=== PATIENT | male | born 2000 | race Caucasian/White ===

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

== ENCOUNTER 2020-12-17 19:18 | Observation (INO) | payer BC ==
[2020-12-17] MEDS ORDERED: Sodium Chloride 0.9% 10 ML Syringe FLUSH PRN (19:31)
[2020-12-17] MEDS ORDERED: Ketorolac 15 MG/ML SDV IVPUSH ONE (19:31)
[2020-12-17] MEDS ORDERED: Ondansetron 4 MG/2 ML SDV IVPUSH ONE (19:31)
[2020-12-17] MEDS ORDERED: Sodium Chloride 0.9% 2.5 ML Syringe FLUSH PRN (19:31)
[2020-12-17] MEDS ORDERED: Sodium Chloride 0.9% 1,000 ML IV ONE (19:33)
--- NOTE | 2020-12-17 19:36 | EDM.PDOC ---
ED HPI GENERAL MEDICAL PROBLEM - General Chief Complaint: Abdominal Pain Stated Complaint: PROBLEMS WITH GALLBLADDER Time Seen by Provider: 12/17/20 19:31 - History of Present Illness INITIAL COMMENTS - FREE TEXT/NARRATIVE: History and physical History of present illness: [] The patient had a sudden onset of right hypogastric pain at about 6 PM. It was sharp like somebody stabbing him with a knife. He is vomited. He does not have fever or chills. He was not ill before it. He was not injured. He was not weight lifting. He has no hernia. There is no radiation to the back or the testicles. The patient does have pain when he urinates. The patient's never had this before and he is in excellent health. Review of systems: As per history of present illness and below otherwise all systems reviewed and negative. Past medical history: As per history of present illness and as reviewed below otherwise noncontributory. Surgical history: As per history of present illness and as reviewed below otherwise noncontribut ory. Social history: No reported history of drug or alcohol abuse. Family history: As per history of present illness and as reviewed below otherwise noncontributory. Physical exam: Constitutional - well developed, well-nourished and in no acute distress HEENT - normocephalic, no evidence of trauma - external nose and mouth normal - no mass in neck and no JVD - mucosae moist EYES - full EOM, PERRL, no icterus - no evidence of inflammation, injection, or drainage Respiratory - no respiratory distress, equal bilateral expansion, lungs clear to auscultation and no abnormal lung sounds Cardiovascular - Regular Rhythm with S1 and S2 appreciated and no murmur, gallop or rub. GI - abdomen soft without distension or organomegaly -very tender in the right hypogastrium above McBurney's point or superior to McBurney's point. He guards this area. Normal bowel sounds - no rebound External genitalia are normal with no tenderness or mass Musculoskeletal no gross deformity of long bones or joints - no tenderness, swelling or edema Neurologic - Alert and oriented times four - CN II-XII grossly intact - motor sensory and coordination symmetrically normal Psychiatric - appropriate mood and affect with normal thought content Hematologic - No petechiae or purpura - mucosa appropriate color and sclera not pale - normal nail bed color and refill Integument - no rash or evidence of trauma - normal turgor Diagnostics: [] Therapeutics: [] Impression: [] Plan: [] Definitive disposition and diagnosis as appropriate pending reevaluation and review of above. RLQ Pain Score (Numeric/FACES): 10 - Related Data Allergies Allergy/AdvReac Type Severity Reaction Status Date / Time No Known Allergies Allergy Verified 07/22/19 13:08 Home Meds: Home Meds . [No Known Home Meds] 12/17/20 [History] Past Medical History HEENT History: Reports: Allergic Rhinitis Cardiovascular History: Reports: None Respiratory History: Reports: Asthma Other Respiratory History: has not used an inhaler for 5 years Gastrointestinal History: Reports: None Genitourinary History: Reports: None Musculoskeletal History: Reports: None Neurological History: Reports: None Psychiatric History: Reports: ADD, ADHD Endocrine/Metabolic History: Reports: Obesity/BMI 30+ Hematologic History: Reports: None Immunologic History: Reports: None Oncologic (Cancer) History: Reports: None Dermatologic History: Reports: None - Infectious Disease History Infectious Disease History: Reports: None - Past Surgical History Head Surgeries/Procedures: Reports: None HEENT Surgical History: Reports: Oral Surgery Other HEENT Surgeries/Procedures: dental surgery as a child Social & Family History - Family History Family Medical History: No Pertinent Family History - Caffeine Use Caffeine Use: Reports: Coffee, Soda ED ROS GENERAL - Review of Systems Review Of Systems: Comprehensive ROS is negative, except as noted in HPI. ED EXAM, GENERAL - Physical Exam Exam: See Below Free Text/Narrative:: My physical exam is in the HPI Course - Vital Signs Text/Narrative:: 2214 hrs. the patient's pain is improved somewhat. CT reveals nothing other than appendicitis without perforation but with a fecalith. Discussed with surgery on-call Dr. Mccray. [id number] Dr. Mccray is here. He will take care of the patient. Will place patient in knobs status and if the patient needs to be rolled into an admission he will take care of it. Last Recorded V/S: Last Vital Signs Temp 37.4 C 12/17/20 19:30 Pulse 94 12/17/20 22:24 Resp 14 12/17/20 22:24 BP 126/66 12/17/20 22:24 Pulse Ox 97 12/17/20 22:24 - Orders/Labs/Meds Orders: Active Orders 24 hr Category Date Time Status Admission Status [Patient Status] [ADT] Routine ADT 12/17/20 22:41 Ordered Notify Provider Consults [RC] ASDIRECTED Care 12/17/20 22:21 Active Consult to Physician [CONS] Stat Cons 12/17/20 22:20 Active CORONAVIRUS COVID-19 EMMETT [MOLEC] Stat Lab 12/17/20 22:20 Received Meropenem [Merrem] 1 gm Med 12/17/20 22:19 Active Sodium Chloride 0.9% [Normal Saline] 100 ml IV ONETIME Sodium Chloride 0.9% [Saline Flush] Med 12/17/20 19:31 Active 10 ml FLUSH ASDIRECTED PRN Sodium Chloride 0.9% [Saline Flush] Med 12/17/20 19:31 Active 2.5 ml FLUSH ASDIRECTED PRN Saline Lock Insert [OM.PC] Stat Oth 12/17/20 19:31 Ordered Medication Orders Meropenem 1 gm/ Sodium (Chloride) 100 mls @ 200 mls/hr IV ONETIME ONE Stop: 12/17/20 22:48 Sodium Chloride (Sodium Chloride 0.9% 10 Ml Syringe) 10 ml FLUSH ASDIRECTED PRN PRN Reason: Keep Vein Open Sodium Chloride (Sodium Chloride 0.9% 2.5 Ml Syringe) 2.5 ml FLUSH ASDIRECTED PRN PRN Reason: Keep Vein Open Labs: Laboratory Tests 12/17/20 12/17/20 12/17/20 Range/Units 19:27 19:50 19:50 WBC 19.63 H (4.0-11.0) K/uL RBC 5.45 (4.50-5.90) M/uL Hgb 16.7 (13.0-17.0) g/dL Hct 46.9 (38.0-50.0) % MCV 86.1 (80.0-98.0) fL MCH 30.6 (27.0-32.0) pg MCHC 35.6 (31.0-37.0) g/dL RDW Std Deviation 42.0 (28.0-62.0) fl RDW Coeff of Victorino 13 (11.0-15.0) % Plt Count 247 (150-400) K/uL MPV 10.00 (7.40-12.00) fL Neut % (Auto) 84.9 H (48.0-80.0) % Lymph % (Auto) 7.4 L (16.0-40.0) % [place] % (Auto) 6.9 (0.0-15.0) % Eos % (Auto) 0.7 (0.0-7.0) % Baso % (Auto) 0.1 (0.0-1.5) % Neut # (Auto) 16.7 H (1.4-5.7) K/uL Lymph # (Auto) 1.5 (0.6-2.4) K/uL [place] # (Auto) 1.4 H (0.0-0.8) K/uL Eos # (Auto) 0.1 (0.0-0.7) K/uL Baso # (Auto) 0.0 (0.0-0.1) K/uL Nucleated RBC % 0.0 /100WBC Nucleated RBCs # 0 K/uL Sodium 139 (136-148) mmol/L Potassium 3.8 (3.5-5.1) mmol/L Chloride 104 (98-107) mmol/L Carbon Dioxide 26.6 (21.0-32.0) mmol/L BUN 11 (7.0-18.0) mg/dL Creatinine 1.2 (0.8-1.3) mg/dL Est Cr Clr Drug Dosing 107.78 mL/min Estimated GFR (MDRD) > 60.0 ml/min Glucose 127 H (74-106) mg/dL Calcium 9.4 (8.5-10.1) mg/dL Total Bilirubin 0.4 (0.2-1.0) mg/dL AST 15 (15-37) IU/L ALT 39 (14-63) IU/L Alkaline Phosphatase 95 (46-116) U/L Total Protein 7.5 (6.4-8.2) g/dL Albumin 3.8 (3.4-5.0) g/dL Globulin 3.7 (2.6-4.0) g/dL Albumin/Globulin Ratio 1.0 (0.9-1.6) Lipase 63 L (73-393) U/L Urine Color YELLOW Urine Appearance CLEAR Urine pH 6.0 (5.0-8.0) Ur Specific [place] 1.025 (1.001-1.035) Urine Protein NEGATIVE (NEGATIVE) mg/dL Urine Glucose (UA) NEGATIVE (NEGATIVE) mg/dL Urine Ketones NEGATIVE (NEGATIVE) mg/dL Urine Occult Blood NEGATIVE (NEGATIVE) Urine Nitrite NEGATIVE (NEGATIVE) Urine Bilirubin NEGATIVE (NEGATIVE) Urine Urobilinogen 0.2 (<2.0) EU/dL Ur Leukocyte Esterase NEGATIVE (NEGATIVE) Meds: Medications Generic Name Dose Route Start Last Admin Trade Name Freq PRN Reason Stop Dose Admin Meropenem 1 gm/ Sodium 100 mls @ 200 mls/hr 12/17/20 22:19 Chloride IV 12/17/20 22:48 ONETIME ONE Sodium Chloride 10 ml 12/17/20 19:31 Sodium Chloride 0.9% 10 Ml Syringe FLUSH ASDIRECTED PRN Keep Vein Open Sodium Chloride 2.5 ml 12/17/20 19:31 Sodium Chloride 0.9% 2.5 Ml Syringe FLUSH ASDIRECTED PRN Keep Vein Open Discontinued Medications Generic Name Dose Route Start Last Admin Trade Name Freq PRN Reason Stop Dose Admin Fentanyl 50 mcg 12/17/20 20:38 Fentanyl 50 Mcg/Ml Sdv IVPUSH 12/17/20 20:39 ONETIME ONE Sodium Chloride 1,000 mls @ 1,000 mls/hr 12/17/20 19:33 12/17/20 20:07 Normal Saline IV 12/17/20 20:32 1,000 mls/hr .Bolus ONE Administration Meropenem/Sodium Chloride Confirm 12/17/20 22:27 Meropenem In Ns 1 Gm/50 Ml Administered 12/17/20 22:28 Dose 50 mls @ as directed IV .STK-MED ONE Iopamidol 100 ml 12/17/20 21:05 12/17/20 21:06 Iopamidol 755 Mg/Ml 500 Ml Multipack Bottle IVPUSH 12/17/20 21:06 100 ml ONETIME STA Administration Ketorolac Tromethamine 15 mg 12/17/20 19:31 12/17/20 20:09 Ketorolac 15 Mg/Ml Sdv IVPUSH 12/17/20 19:32 15 mg ONETIME ONE Administration Ondansetron HCl 4 mg 12/17/20 19:31 12/17/20 20:11 Ondansetron 4 Mg/2 Ml Sdv IVPUSH 12/17/20 19:32 4 mg ONETIME ONE Administration Departure - Departure Time of Disposition: 22:43 Disposition: Refer to Observation Condition: Good Clinical Impression: Acute appendicitis - Discharge Information Sepsis Event Note (ED) - Evaluation Sepsis Screening Result: No Definite Risk - Focused Exam Vital Signs: Vital Signs Temp Pulse Resp BP Pulse Ox 12/17/20 22:24 94 14 126/66 97 12/17/20 19:30 37.4 C 91 20 161/77 H 98 - My Orders Last 24 Hours: My Active Orders 12/17/20 19:31 Sodium Chloride 0.9% [Saline Flush] 10 ml FLUSH ASDIRECTED PRN Sodium Chloride 0.9% [Saline Flush] 2.5 ml FLUSH ASDIRECTED PRN Saline Lock Insert [OM.PC] Stat 12/17/20 22:19 Meropenem [Merrem] 1 gm Sodium Chloride 0.9% [Normal Saline] 100 ml IV ONETIME 12/17/20 22:20 Consult to Physician [CONS] Stat CORONAVIRUS COVID-19 EMMETT [MOLEC] Stat 12/17/20 22:21 Notify Provider Consults [RC] ASDIRECTED 12/17/20 22:41 Admission Status [Patient Status] [ADT] Routine - Assessment/Plan Last 24 Hours: My Active Orders 12/17/20 19:31 Sodium Chloride 0.9% [Saline Flush] 10 ml FLUSH ASDIRECTED PRN Sodium Chloride 0.9% [Saline Flush] 2.5 ml FLUSH ASDIRECTED PRN Saline Lock Insert [OM.PC] Stat 12/17/20 22:19 Meropenem [Merrem] 1 gm Sodium Chloride 0.9% [Normal Saline] 100 ml IV ONETIME 12/17/20 22:20 Consult to Physician [CONS] Stat CORONAVIRUS COVID-19 EMMETT [MOLEC] Stat 12/17/20 22:21 Notify Provider Consults [RC] ASDIRECTED 12/17/20 22:41 Admission Status [Patient Status] [ADT] Routine
[2020-12-17 20:16] LABS: BLOOD UREA NITROGEN,BUN 11 mg/dL (7.0-18.0); CARBON DIOXIDE,CO2 26.6 mmol/L (21.0-32.0); CHLORIDE,CL 104 mmol/L (98-107); GLUCOSE RANDOM 127 mg/dL (74-106); LIPASE 63 U/L (73-393); POTASSIUM,K 3.8 mmol/L (3.5-5.1); SODIUM,NA 139 mmol/L (136-148)
[2020-12-17] MEDS ORDERED: fentaNYL 50 MCG/ML SDV IVPUSH ONE (20:38)
[2020-12-17] MEDS ORDERED: Iopamidol 755 MG/ML 500 ML Multipack Bottle IVPUSH STA (21:05)
--- NOTE | 2020-12-17 21:34 | CT ---
For Patients: As a result of the Century Cures Act, medical imaging exams and procedure reports are released immediately into your electronic medical record. You may view this report before your referring provider. If you have questions, please contact your health care provider. INDICATION: Right hypogastric abdomen pain and leukocytosis. TECHNIQUE: CT abdomen and pelvis acquired with 100 cc Isovue 370 IV contrast. COMPARISON: None. FINDINGS: Lower chest: Unremarkable. Liver: Unremarkable. Normal in size and attenuation. No suspicious masses. Gallbladder and bile ducts: Unremarkable. No stones or inflammation. No biliary dilatation. Pancreas: Unremarkable. No mass or inflammation. Spleen: Unremarkable. Normal in size. No masses. Adrenal glands: Unremarkable. No nodules. Kidneys: Unremarkable. No suspicious masses, stones, or hydronephrosis. GI tract: Unremarkable. Normal in caliber. No sign of mass or inflammation. Appendix is inflamed and dilated up to 9 mm. A fecalith is present at the origin of the appendix. No perforation or abscess. Vasculature: Unremarkable. Mesenteric arteries are patent. Lymph nodes: No lymphadenopathy. Omentum/Peritoneum/Abdominal Wall: Unremarkable. No sign of mass or infiltration. No free air or significant free fluid. Pelvis: Unremarkable. Bones: Unremarkable for age. IMPRESSION: Acute uncomplicated appendicitis. Please note that all CT scans at this facility use dose modulation, iterative reconstruction, and/or weight-based dosing when appropriate to reduce radiation dose to as low as reasonably achievable. Dictated by Eduardo Ambriz MD @ 12/17/2020 9:33:[address] Eduardo Ambriz @ Dec 17 2020 9:33PM
[2020-12-17] MEDS ORDERED: Meropenem 1 GM in Sodium Chloride 0.9% 100 ML IV ONE (22:19)
[2020-12-17] MEDS ORDERED: Meropenem Premix 50 ML IV ONE (22:27)
--- NOTE | 2020-12-17 23:21 | PCM.PREANE ---
Preanesthetic Assessment - Procedure Proposed Procedure: LAP APPY - Anesthesia/Transfusion/Family Hx Anesthesia History: Prior Anesthesia Without Reaction Family History of Anesthesia Reaction: No Transfusion History: No Prior Transfusion(s) Intubation History: Unknown - Review of Systems General: No Symptoms Pulmonary: Other (Asthma. Uses nebulizers every 4-6 weeks, last ~ 4 weeks ago. SMOKES and CHEWS.) Gastrointestinal: Abdominal Pain Neurological: No Symptoms Other: Reports: None - Physical Assessment NPO Status Date: 12/17/20 NPO Status Time: 16:00 Vital Signs: Last Vital Signs Temp 37.4 C 12/17/20 19:30 Pulse 72 12/17/20 22:53 Resp 16 12/17/20 22:53 BP 126/44 L 12/17/20 22:53 Pulse Ox 96 12/17/20 22:53 Height: 1.83 m Weight: 104.326 kg ASA Class: 2E Airway Class: Mallampati = 2 Dentition: Reports: Normal Dentition Thyro-Mental Finger Breadths: 3 Mouth Opening Finger Breadths: 3 ROM/Head Extension: Full Lungs: Clear to Auscultation Cardiovascular: Regular Rate - Lab Values: Laboratory Last Values WBC 19.63 K/uL (4.0-11.0) H 12/17/20 19:50 RBC 5.45 M/uL (4.50-5.90) 12/17/20 19:50 Hgb 16.7 g/dL (13.0-17.0) 12/17/20 19:50 Hct 46.9 % (38.0-50.0) 12/17/20 19:50 MCV 86.1 fL (80.0-98.0) 12/17/20 19:50 MCH 30.6 pg (27.0-32.0) 12/17/20 19:50 MCHC 35.6 g/dL (31.0-37.0) 12/17/20 19:50 RDW Std Deviation 42.0 fl (28.0-62.0) 12/17/20 19:50 RDW Coeff of Victorino 13 % (11.0-15.0) 12/17/20 19:50 Plt Count 247 K/uL (150-400) 12/17/20 19:50 MPV 10.00 fL (7.40-12.00) 12/17/20 19:50 Neut % (Auto) 84.9 % (48.0-80.0) H 12/17/20 19:50 Lymph % (Auto) 7.4 % (16.0-40.0) L 12/17/20 19:50 [place] % (Auto) 6.9 % (0.0-15.0) 12/17/20 19:50 Eos % (Auto) 0.7 % (0.0-7.0) 12/17/20 19:50 Baso % (Auto) 0.1 % (0.0-1.5) 12/17/20 19:50 Neut # (Auto) 16.7 K/uL (1.4-5.7) H 12/17/20 19:50 Lymph # (Auto) 1.5 K/uL (0.6-2.4) 12/17/20 19:50 [place] # (Auto) 1.4 K/uL (0.0-0.8) H 12/17/20 19:50 Eos # (Auto) 0.1 K/uL (0.0-0.7) 12/17/20 19:50 Baso # (Auto) 0.0 K/uL (0.0-0.1) 12/17/20 19:50 Nucleated RBC % 0.0 /100WBC 12/17/20 19:50 Nucleated RBCs # 0 K/uL 12/17/20 19:50 Sodium 139 mmol/L (136-148) 12/17/20 19:50 Potassium 3.8 mmol/L (3.5-5.1) 12/17/20 19:50 Chloride 104 mmol/L (98-107) 12/17/20 19:50 Carbon Dioxide 26.6 mmol/L (21.0-32.0) 12/17/20 19:50 BUN 11 mg/dL (7.0-18.0) 12/17/20 19:50 Creatinine 1.2 mg/dL (0.8-1.3) 12/17/20 19:50 Est Cr Clr Drug Dosing 107.78 mL/min 12/17/20 19:50 Estimated GFR (MDRD) > 60.0 ml/min 12/17/20 19:50 Glucose 127 mg/dL (74-106) H 12/17/20 19:50 Calcium 9.4 mg/dL (8.5-10.1) 12/17/20 19:50 Total Bilirubin 0.4 mg/dL (0.2-1.0) 12/17/20 19:50 AST 15 IU/L (15-37) 12/17/20 19:50 ALT 39 IU/L (14-63) 12/17/20 19:50 Alkaline Phosphatase 95 U/L (46-116) 12/17/20 19:50 Total Protein 7.5 g/dL (6.4-8.2) 12/17/20 19:50 Albumin 3.8 g/dL (3.4-5.0) 12/17/20 19:50 Globulin 3.7 g/dL (2.6-4.0) 12/17/20 19:50 Albumin/Globulin Ratio 1.0 (0.9-1.6) 12/17/20 19:50 Lipase 63 U/L (73-393) L 12/17/20 19:50 Urine Color YELLOW 12/17/20 19:27 Urine Appearance CLEAR 12/17/20 19:27 Urine pH 6.0 (5.0-8.0) 12/17/20 19:27 Ur Specific [place] 1.025 (1.001-1.035) 12/17/20 19:27 Urine Protein NEGATIVE mg/dL (NEGATIVE) 12/17/20 19:27 Urine Glucose (UA) NEGATIVE mg/dL (NEGATIVE) 12/17/20 19:27 Urine Ketones NEGATIVE mg/dL (NEGATIVE) 12/17/20 19:27 Urine Occult Blood NEGATIVE (NEGATIVE) 12/17/20 19:27 Urine Nitrite NEGATIVE (NEGATIVE) 12/17/20 19:27 Urine Bilirubin NEGATIVE (NEGATIVE) 12/17/20 19:27 Urine Urobilinogen 0.2 EU/dL (<2.0) 12/17/20 19:27 Ur Leukocyte Esterase NEGATIVE (NEGATIVE) 12/17/20 19:27 SARS-CoV-2 RNA (EMMETT) NEGATIVE (NEGATIVE) 12/17/20 22:20 - Allergies Allergies/Adverse Reactions: Allergies Allergy/AdvReac Type Severity Reaction Status Date / Time No Known Allergies Allergy Verified 07/22/19 13:08 - Blood Blood Available: No Product(s) Available: None - Anesthesia Plan Pre-Op Medication Ordered: None - Acknowledgements Anesthesia Type Planned: General Anesthesia Pt an Appropriate Candidate for the Planned Anesthesia: Yes Alternatives and Risks of Anesthesia Discussed w Pt/Guardian: Yes Pt/Guardian Understands and Agrees with Anesthesia Plan: Yes Additional Comments: Discussed, ? answered, permit signed, will proceed. PreAnesthesia Questionnaire HEENT History: Reports: Allergic Rhinitis Cardiovascular History: Reports: None Respiratory History: Reports: Asthma Other Respiratory History: has not used an inhaler for 5 years Gastrointestinal History: Reports: None Genitourinary History: Reports: None Musculoskeletal History: Reports: None Neurological History: Reports: None Psychiatric History: Reports: ADD, ADHD Endocrine/Metabolic History: Reports: Obesity/BMI 30+ Hematologic History: Reports: None Immunologic History: Reports: None Oncologic (Cancer) History: Reports: None Dermatologic History: Reports: None - Infectious Disease History Infectious Disease History: Reports: None - Past Surgical History Head Surgeries/Procedures: Reports: None HEENT Surgical History: Reports: Oral Surgery Other HEENT Surgeries/Procedures: dental surgery as a child - SUBSTANCE USE Tobacco Use Within Last Twelve Months: Cigarettes Recreational Drug Use History: No - HOME MEDS Home Medications: Home Meds . [No Known Home Meds] 12/17/20 [History] - CURRENT (IN HOUSE) MEDS Current Meds: Current Medications Sodium Chloride (Sodium Chloride 0.9% 10 Ml Syringe) 10 ml FLUSH ASDIRECTED PRN PRN Reason: Keep Vein Open Sodium Chloride (Sodium Chloride 0.9% 2.5 Ml Syringe) 2.5 ml FLUSH ASDIRECTED PRN PRN Reason: Keep Vein Open Discontinued Medications Fentanyl (Fentanyl 50 Mcg/Ml Sdv) 50 mcg IVPUSH ONETIME ONE Stop: 12/17/20 20:39 Last Admin: 12/17/20 22:47 Dose: 50 mcg Documented by: Sodium Chloride (Normal Saline) 1,000 mls @ 1,000 mls/hr IV .Bolus ONE Stop: 12/17/20 20:32 Last Admin: 12/17/20 20:07 Dose: 1,000 mls/hr Documented by: Meropenem 1 gm/ Sodium (Chloride) 100 mls @ 200 mls/hr IV ONETIME ONE Stop: 12/17/20 22:48 Meropenem/Sodium Chloride (Meropenem In Ns 1 Gm/50 Ml) Confirm Administered Dose 50 mls @ as directed IV .STK-MED ONE Stop: 12/17/20 22:28 Last Admin: 12/17/20 22:50 Dose: 100 mls/hr Documented by: Iopamidol (Iopamidol 755 Mg/Ml 500 Ml Multipack Bottle) 100 ml IVPUSH ONETIME STA Stop: 12/17/20 21:06 Last Admin: 12/17/20 21:06 Dose: 100 ml Documented by: Ketorolac Tromethamine (Ketorolac 15 Mg/Ml Sdv) 15 mg IVPUSH ONETIME ONE Stop: 12/17/20 19:32 Last Admin: 12/17/20 20:09 Dose: 15 mg Documented by: Ondansetron HCl (Ondansetron 4 Mg/2 Ml Sdv) 4 mg IVPUSH ONETIME ONE Stop: 12/17/20 19:32 Last Admin: 12/17/20 20:11 Dose: 4 mg Documented by:
[2020-12-17] MEDS ORDERED: Bupivacaine 0.5% 10 ML SDV ONE (23:34)
[2020-12-17] MEDS ORDERED: Propofol 200 MG/20 ML SDV ONE (23:39)
[2020-12-17] MEDS ORDERED: Ondansetron 4 MG/2 ML SDV ONE (23:39)
[2020-12-17] MEDS ORDERED: Midazolam 1 MG/ML 2 ML SDV ONE (23:39)
[2020-12-17] MEDS ORDERED: fentaNYL 100 MCG/2 ML SDV ONE (23:39)
[2020-12-17] MEDS ORDERED: Rocuronium Bromide 50 MG/5 ML Syringe ONE (23:40)
[2020-12-17] MEDS ORDERED: Glycopyrrolate 0.2 MG/ML SDV ONE (23:40)
[2020-12-17] MEDS ORDERED: Lidocaine 2% 5 ML SDV ONE (23:40)
[2020-12-17] MEDS ORDERED: Dexamethasone 4 MG/ML 5 ML MDV ONE (23:40)
[2020-12-17] MEDS ORDERED: Morphine 10 MG/ML Syringe ONE (23:46)
--- NOTE | 2020-12-18 00:03 | CONS ---
DATE OF CONSULTATION: 12/17/2020 DATE OF : 2000 PRIMARY CARE PHYSICIAN: None PCP HISTORY OF PRESENT ILLNESS: The patient is a pleasant 20-year-old gentleman who had onset of some right lower abdominal pain at about 4 this afternoon. It became more prominent. He said it was sharp, like it was stabbing with a knife. It does not radiate anywhere. He did have one episode of emesis. He denies any fevers or chills. The patient came to the ER for evaluation. He was found to have leukocytosis along with CT scan showing inflamed and dilated appendix. PAST MEDICAL HISTORY: The patient denies any. CURRENT HOME MEDICATIONS: The patient denies any. ALLERGIES: The patient denies any. PAST SURGICAL HISTORY: Knee surgery. SOCIAL HISTORY: 1. Patient does smoke a quarter pack of cigarettes per day. 2. Does chew one can a day. 3. He has 2-4 beers a week, usually just on weekends. FAMILY HISTORY: He believes his grandfather had diabetes. REVIEW OF SYSTEMS: A complete 12+ review of systems was done and was negative except for the HPI. IMAGING: As per HPI. LABORATORY DATA: White cell count is 19.63, hemoglobin is 16.7, platelet count is 247. Sodium is 139, potassium 3.8, chloride 104, bicarb is 26.6, BUN 11, creatinine 1.2, total bilirubin 0.4, AST is 15, ALT is 39, alk phosphatase is 95, lipase is 53. PHYSICAL EXAMINATION: GENERAL: The patient is resting comfortably in his ER bed. He is alert and oriented, in no acute distress. VITAL SIGNS: Temperature is 99.3, pulse is 72, blood pressure is 186/44, saturation is 96% on room air. HEENT: Head is normocephalic and atraumatic. LUNGS: Clear to auscultation bilaterally. No rhonchi or wheezing heard. HEART: Regular rate and rhythm. No murmur appreciated. ABDOMEN: Soft, nondistended. He is tender in the right lower quadrant. No rebound or guarding. NEUROLOGIC: Grossly, no motor or neurologic deficits noted. ASSESSMENT AND PLAN: The patient is a pleasant 20-year-old gentleman with likely acute appendicitis. I did go over the patient what appendix was; went over risks, goals, and alternatives to laparoscopic appendectomy. Risks include, but not limited to, bleeding, abscess formation, staple line failure, injury to nearby structures, and that this could be something other than appendicitis, abscess formation, need to convert to open. The patient understands, wishes to proceed. He is going to receive antibiotics in the ER, and we will call the OR crew in. All of the patient's questions were answered. LILLI / DENA /[id number]
[2020-12-18] MEDS ORDERED: Octyl 2-Cyanoacrylate 1 Tube ONE (00:26)
[2020-12-18] MEDS ORDERED: Morphine 10 MG/ML Syringe IVPUSH ONE (00:46)
[2020-12-18] MEDS ORDERED: Ketorolac 30 MG/ML SDV ONE (01:03)
[2020-12-18] MEDS ORDERED: Sugammadex Sodium 200 MG/2 ML VIAL ONE (01:15)
--- NOTE | 2020-12-18 01:26 | PCM.OPNOTE ---
- General Post-Op/Procedure Note Date of Surgery/Procedure: 12/18/20 Operative Procedure(s): Laparoscopic appendectomy Findings: edematous appendix dictation number [id number] Pre Op Diagnosis: Acute appendicitis Post-Op Diagnosis: Acute appendicitis Primary Surgeon: Stu Mccray Pathology: appendix EBL in mLs: 5 Complications: None Condition: Good
[2020-12-18] MEDS ORDERED: Acetaminophen/oxyCODONE 325-5 MG Tab PO PRN (01:27)
[2020-12-18] MEDS ORDERED: HYDROmorphone 1 MG/ML Syringe IVPUSH PRN (01:27)
[2020-12-18] MEDS ORDERED: Ondansetron 4 MG/2 ML SDV IVPUSH PRN (01:27)
--- NOTE | 2020-12-18 01:49 | PCM.POSTAN ---
POST ANESTHESIA ASSESSMENT - MENTAL STATUS Mental Status: Alert, Oriented - VITAL SIGNS Vital Signs: Last Vital Signs Temp 36.7 C 12/18/20 01:29 Pulse 62 12/18/20 01:40 Resp 16 12/18/20 01:40 BP 125/68 12/18/20 01:40 Pulse Ox 94 L 12/18/20 01:40 - RESPIRATORY Respiratory Status: Respiratory Rate WNL - CARDIOVASCULAR CV Status: Pulse Rate WNL - GASTROINTESTINAL GI Status: No Symptoms - PAIN Pain Score: 0 - POST OP HYDRATION Hydration Status: Adequate & Stable - OBSERVATIONS Free Text/Narrative:: Doing well. Ready for floor transfer.
[2020-12-18] MEDS: ceFAZolin 2 GM in Premix Bag 1 BAG IV SCH ×2 (02:46→09:25)
--- NOTE | 2020-12-18 04:17 | OR ---
SURGEON: DANIEL IRAHETA MD DATE OF PROCEDURE: 12/18/2020 PREOPERATIVE DIAGNOSIS: Acute appendicitis. POSTOPERATIVE DIAGNOSIS: Acute appendicitis. PRIMARY SURGEON: Daniel Iraheta MD. ANESTHESIA: General. ESTIMATED BLOOD LOSS: 5 mL. PROCEDURE: Laparoscopic appendectomy. REASON FOR PROCEDURE: The patient is a pleasant 20-year-old gentleman who started having right lower quadrant pain this afternoon. He did come to the ER and was found to have an elevated white cell count along with a CT scan indicative of appendicitis. I did go over with the patient risks, goals, and alternatives of the procedure. The risks include, but not limited to, bleeding, infection, need to convert to open, failure of staple line, abscess formation, injury to nearby structures, hernia formation, and that this could be something other than appendicitis. The patient understands. All of his questions were answered. OPERATION NARRATIVE: The patient was brought to the OR. He was prepped and draped in usual sterile fashion. SCDs were placed. Martinez catheter placed. Anesthesia provided by Anesthesia team and antibiotics were given in the ER. After time-out was performed, an infraumbilical incision was made. The umbilical stalk was then grasped and a Veress needle was then placed. Did not draw back any blood or succus and had a positive drop test, so insufflation was begun. However, had high pressures, so was stopped, and Veress needle was then readjusted and started again, again high pressures. So, now using a 5 mm trocar with a camera placed into the abdominal cavity, and then once we were in, started insufflation. The abdomen was inspected, no entry injury was noted. Now, a 12 mm trocar was placed in the left lower quadrant and a 5 mm in the left upper quadrant under direct visualization. Now, the patient placed in head-down position and airplaned towards myself. The appendix was identified. It was edematous and indurated. It was slightly scarred down and was fairly long. Window was made at the base of the appendix in the mesoappendix. Now, the Harmonic scalpel was used to take the mesoappendix. There was good hemostasis. A blue load linear staple was then used to fire across the base of the appendix at the junction of the appendix and cecum. There was good hemostasis, staple line appeared intact. Appendix was then removed in Endo Catch bag. Operative site was then inspected again. Staple line appeared intact and had good hemostasis with the mesoappendix and staple line. Rest of the abdomen was again inspected. No other abnormalities were noted. Now, 12 mm trocar was removed and it was closed using a Etddy- Lisa and a 0 Vicryl. Now, the 5 mm trocars were removed under direct visualization and the pneumoperitoneum was released. All the trocar sites were injected with the remaining local and closed with 4-0 Monocryl and Dermabond. At end of the case, sponge and needle counts were correct. The patient was transferred to recovery room in stable condition. LILLI FERNANDES /[id number]
[2020-12-18 08:06] VITALS: BP 124/50; PULSE 54
--- NOTE | 2020-12-18 08:46 | PCM48HPAN ---
Post Anesthesia Note - EVALUATION WITHIN 48HRS OF ANESTHETIC Vital Signs in Normal Range: Yes Patient Participated in Evaluation: Yes Respiratory Function Stable: Yes Airway Patent: Yes Cardiovascular Function Stable: Yes Hydration Status Stable: Yes Pain Control Satisfactory: Yes Nausea and Vomiting Control Satisfactory: Yes Mental Status Recovered: Yes Vital Signs: Last Vital Signs Temp 36.6 C 12/18/20 07:50 Pulse 54 L 12/18/20 07:50 Resp 17 12/18/20 07:50 BP 124/50 L 12/18/20 07:50 Pulse Ox 96 12/18/20 07:50 - COMMENTS/OBSERVATIONS Free Text/Narrative:: Doing well. No problems post.
--- NOTE | 2020-12-19 09:51 | PN ---
SUBJECTIVE: The patient was seen this morning. He is feeling much better than before the surgery. The patient reports he has been tolerating a diet. No nausea and vomiting. Overall, feels pretty good, much better than yesterday. OBJECTIVE: GENERAL: The patient is sitting comfortably in his bed. He is alert and oriented. No acute distress. VITALS: Temperature is 97.8, pulse is 54, blood pressure is 124/50, satting 96% on room air. ABDOMEN: Soft and nondistended. Mainly just incisional tenderness on compression of the abdomen. Incisions are clean, dry, intact with Dermabond in place. No signs of infection. ASSESSMENT AND PLAN: The patient is a 20-year-old gentleman status post laparoscopic appendectomy for nonperforated acute appendicitis earlier this morning. The patient is doing well. Did go over the surgery with the patient. We will discharge him today. I did go over he should take it easy for the next1- 2 weeks. No strenuous activities. He may shower today, but keep his wound Dermabond clean and dry. He should contact us if he notices any fevers, chills, nausea, vomiting, or any drainage or redness around the incision sites. All the patient's questions were answered. The patient will follow up with me in 2 weeks. LILLI FERNANDES /[id number] MTDD
== END 2020-12-18 10:50 | disposition home or self-care (01) ==
LOC: MW.ED 19:18 → MW.SDS 22:25 → MW.MS 23:04
PROVIDERS: ADMIT Surgery; ATTEND Surgery
DX: K35.80 Unspecified acute appendicitis (principal); F17.210 Nicotine dependence, cigarettes, uncomplicated; E66.9 Obesity, unspecified; Z01.812 Encounter for preprocedural laboratory examination; Z98.890 Other specified postprocedural states; Z20.822 Contact with and (suspected) exposure to COVID-19
CPT/HCPCS: 36415; 44970; 74177; 80053; 81003; 83690; 85025; 87635; 88304; 96365; 96375; 99285; A9270; J0131; J0690; J1100; J1885; J2185; J2250; J2270; J2405; J2704; J3010; J3490; J7030; Q9967; 00840; 99284; U0002

== ENCOUNTER 2022-11-02 13:44 | Emergency (ER) | payer BC ==
[2022-11-02] MEDS ORDERED: diphenhydrAMINE 50 MG/ML SDV IVPUSH ONE (14:18)
[2022-11-02] MEDS ORDERED: Metoclopramide 10 MG/2 ML SDV IVPUSH ONE (14:18)
[2022-11-02] MEDS ORDERED: Sodium Chloride 0.9% 1,000 ML IV ONE (14:18)
[2022-11-02 16:30] VITALS: BP 139/73; PULSE 60
== END 2022-11-02 17:12 | disposition home or self-care (01) ==
LOC: MW.ED 13:44
DX: S06.0X0A Concussion without loss of consciousness, initial encounter (principal); J45.909 Unspecified asthma, uncomplicated; E66.9 Obesity, unspecified; Z68.30 Body mass index [BMI] 30.0-30.9, adult; W50.0XXA Accidental hit or strike by another person, initial encounter; Y93.39 Activity, other involving climbing, rappelling and jumping off; Y92.34 Swimming pool (public) as the place of occurrence of the external cause
CPT/HCPCS: 70450; 96361; 96374; 96375; 99283; J1200; J2765; J7030